=== PATIENT | female | born 1965 | race Caucasian/White ===

== ENCOUNTER 2021-05-05 14:45 | Emergency (ER) | payer OTHER ==
[~2021-05-05] VITALS: Ht 149.9 cm; Wt 59.0 kg
--- NOTE | 2021-05-05 14:50 | NUR ---
Placed in room 7 . Placed on log operations coordinator, blood pressure machine and pulse oximeter. To gown for exam. Side rails up. Report given to RICKIE Earl.
[2021-05-05 14:55] VITALS: BP_SYST 117
--- NOTE | 2021-05-05 14:55 | NUR ---
NAKIA Swanson at bedside examining patient.
--- NOTE | 2021-05-05 15:00 | NUR ---
PT ARRIVES FROM HOME W/ C/O RIGHT WRIST PAIN 03/07, PT WAS RECENTLY DX W/ TENDONITIS.
[2021-05-05] MEDS: KETOROLAC TROMETHAMINE 15 MG VIAL IM ONE (15:06)
[2021-05-05] MEDS: HYDROcodone/ACETAMIN 5-325 MG TAB (NORCO/ VICODIN) PO ONE (15:06)
--- NOTE | 2021-05-05 15:10 | NUR ---
MEDICATED PER MD ORDER
--- NOTE | 2021-05-05 16:09 | NUR ---
Pt resting in [facility] at this time
[2021-05-05 16:21] LABS: BASOPHILS % (AUTO) 0.4 % (0.0-2.0); EOSINOPHILS # (AUTO) 0.1 K/uL (0.0-0.4); EOSINOPHILS % (AUTO) 1.7 % (0.0-4.0); HEMATOCRIT 36.4 % (36-48); HEMOGLOBIN 12.8 g/dL (12.0-16.0); LYMPHOCYTES # (AUTO) 1.8 K/uL (1.0-5.5); LYMPHOCYTES % (AUTO) 22.5 % (20.5-51.5); MEAN CORPUSCULAR HEMOGLOBIN 31 pg (27-31); MEAN CORPUSCULAR HGB CONC 35 % (32-36); MEAN CORPUSCULAR VOLUME 89 fL (79.0-98.0); MONOCYTES # (AUTO) 0.6 K/uL (0.0-1.0); NEUTROPHILS # (AUTO) 5.3 K/uL (1.8-7.7); NEUTROPHILS % (AUTO) 67.4 % (40.0-70.0); PLATELET COUNT (AUTO) 223 K/uL (130-430); RED CELL DISTRIBUTION WIDTH 12.8 % (9.0-15.0); WHITE BLOOD COUNT (AUTO) 7.9 K/uL (4.8-10.8)
[2021-05-05 16:34] LABS: C-REACTIVE PROTEIN QUANT 1.8 mg/dL (0-0.5); CALCIUM 8.8 mg/dL (8.4-11.0); CREATININE 0.99 mg/dL (0.55-1.30); POTASSIUM 4.1 mmol/L (3.5-5.1)
[2021-05-05 16:52] LABS: INR 0.9 (0.8-1.2); PROTHROMBIN TIME 9.3 SECS (9.5-12.5)
[2021-05-05] MEDS ORDERED: CEPH500C2 PO (17:03)
[2021-05-05] MEDS ORDERED: IBUP-1969 PO (17:04)
[2021-05-05] MEDS ORDERED: ACET325T53 PO (17:04)
[2021-05-05 17:24] LABS: ERYTHROCYTE SEDIMENTATION RATE 25 MM/HR (0-20)
[2021-05-05 17:57] VITALS: BP_SYST 117
--- NOTE | 2021-05-05 17:58 | NUR ---
Patient given written and verbal discharge instructions and verbalizes understanding. ER MD discussed with patient the results and treatment provided. Patient in stable condition. ID arm band removed. Rx of Tylenol, Cephalexin, Ibuprofen given. Patient educated on pain management and to follow up with PMD. Pain Scale 0/10. Opportunity for questions provided and answered. Medication side effect fact sheet provided.
== END 2021-05-05 17:57 | disposition home or self-care (01) ==
LOC: SED 14:45
DX: M25.531 Pain in right wrist (principal); Z79.899 Other long term (current) drug therapy
CPT/HCPCS: 36415; 73110; 80048; 85025; 85610; 85651; 86140; 87040; 96372; 99284; J1885